=== PATIENT | male | born 1990 | race Caucasian/White ===

== ENCOUNTER 2019-09-12 12:33 | Emergency (ER) | payer SELFPAY ==
--- NOTE | 2019-09-12 12:40 | EDM.PDOC ---
ED HPI GENERAL MEDICAL PROBLEM - General Chief Complaint: Upper Extremity Injury/Pain Stated Complaint: INFECTION ON FINGER Time Seen by Provider: 09/12/19 12:34 Source of Information: Reports: Patient History Limitations: Reports: No Limitations - History of Present Illness INITIAL COMMENTS - FREE TEXT/NARRATIVE: HISTORY AND PHYSICAL: History of present illness: Patient is a 29-year-old male who presents to the emergency room with complaints of infection along the nailbed of his left index finger x3 days. He states that the area has a lot of pressure and pain below the nailbed. He denies any injury or trauma of the finger. Patient denies any fever, chills, headache, change in vision, syncope or near syncope. Denies any chest pain, back pain, shortness of breath or cough. Denies any GI or symptoms. Patient has been eating and drinking appropriately. Review of systems: As per history of present illness and below otherwise all systems reviewed and negative. Past medical history: As per history of present illness and as reviewed below otherwise noncontributory. Surgical history: As per history of present illness and as reviewed below otherwise noncontributory. Social history: See social history for further information Family history: As per history of present illness and as reviewed below otherwise noncontributory. Physical exam: General: Well-developed and well-nourished 29-year-old male. Alert and oriented. Nontoxic-appearing and in no acute distress. HEENT: Atraumatic, normocephalic, pupils equal and reactive bilaterally, negative for conjunctival pallor or scleral icterus, mucous membranes moist, TMs normal bilaterally, throat clear, neck supple, nontender, trachea midline. No drooling or trismus noted. No meningeal signs. No hot potato voice noted. Lungs: Clear to auscultation, breath sounds equal bilaterally, chest nontender. Heart: S1S2, regular rate and rhythm without overt murmur Abdomen: Soft, nondistended, nontender. Skin: Paronychia to the left index finger. Otherise skin is intact, warm, dry. No lesions or rashes noted. Extremities: Atraumatic, moves all extremities per self without difficulty or deficits. Neurovascular unremarkable. Neuro: Awake, alert, oriented. Cranial nerves II through XII unremarkable. Cerebellum unremarkable. Motor and sensory unremarkable throughout. Exam nonfocal. Notes: Usual and customary procedures were followed. Thoroughly cleansed and prepped with Betadine. Puncture site was created to express drainage. Wound care was provided. Supportive care measures were reviewed and discussed. Voices understanding and is agreeable to plan of care. Denies any further questions or concerns at this time. Diagnostics: None Therapeutics: I&D Prescription: Keflex Diclofenac Impression: Paronychia Plan: 1. Keep your skin clean and dry. Attempt to do Epsom Salt soaks of the involved finger 2-3 times daily over the next few days. 2. Take medications as needed and directed. 3. Follow up with primary care as we discussed. Return to the ED as needed as discussed Definitive disposition and diagnosis as appropriate pending reevaluation and review of above. left pointer finger Pain Score (Numeric/FACES): 10 - Related Data Allergies Allergy/AdvReac Type Severity Reaction Status Date / Time No Known Allergies Allergy Verified 09/12/19 12:45 Home Meds: Home Meds Diclofenac Sodium [Voltaren] 75 mg PO BIDMEALS PRN #20 tab.cr 09/12/19 [Rx] cephALEXin [Keflex] 500 mg PO TID 7 Days #21 cap 09/12/19 [Rx] Review of Systems - Review of Systems Review Of Systems: Comprehensive ROS is negative, except as noted in HPI. ED EXAM, GENERAL - Physical Exam Exam: See Below (See dictation) ED TRAUMA EXTREMITY PROCEDURES - I&D Site: left index finger Skin Prep: Chlorhexidine (Hibiciens), Providone-Iodine (Betadine) Area Incised With: Needle Drainage: Purulent, Moderate Amount Sterile Dressing: Adhesive Dressing Complications: No Progress/Comments: Drainage of paronychia Course - Vital Signs Last Recorded V/S: Last Vital Signs Temp 96.9 F 09/12/19 12:46 Pulse 91 09/12/19 12:46 Resp 20 09/12/19 12:46 BP 106/87 09/12/19 12:46 Pulse Ox 99 09/12/19 12:46 - Orders/Labs/Meds Meds: Medications Discontinued Medications Generic Name Dose Route Start Last Admin Trade Name Freq PRN Reason Stop Dose Admin Diclofenac Sodium 75 mg 09/12/19 12:49 Voltaren PO 09/12/19 12:50 ONETIME ONE Ketorolac Tromethamine 60 mg 09/12/19 12:49 Toradol IM 09/12/19 12:50 ONETIME ONE Departure - Departure Time of Disposition: 12:52 Disposition: Home, Self-Care 01 Clinical Impression: Paronychia of finger Qualifiers: Laterality: left Qualified Code(s): L03.012 - Cellulitis of left finger - Discharge Information Prescriptions: cephALEXin [Keflex] 500 mg PO TID 7 Days #21 cap Diclofenac Sodium [Voltaren] 75 mg PO BIDMEALS PRN #20 tab.cr PRN Reason: Pain Instructions: Paronychia, [id number] Referrals: PCP,None [Primary Care Provider] - Forms: ED Department Discharge Additional Instructions: The following information is given to patients seen in the emergency department who are being discharged to home. This information is to outline your options for follow-up care. We provide all patients seen in our emergency department with a follow-up referral. The need for follow-up, as well as the timing and circumstances, are variable depending upon the specifics of your emergency department visit. If you don't have a primary care physician on staff, we will provide you with a referral. We always advise you to contact your personal physician following an emergency department visit to inform them of the circumstance of the visit and for follow-up with them and/or the need for any referrals to a consulting specialist. The emergency department will also refer you to a specialist when appropriate. This referral assures that you have the opportunity for follow-up care with a specialist. All of these measure are taken in an effort to provide you with optimal care, which includes your follow-up. Under all circumstances we always encourage you to contact your private physician who remains a resource for coordinating your care. When calling for follow-up care, please make the office aware that this follow-up is from your recent emergency room visit. If for any reason you are refused follow-up, please contact the [facility] Emergency Department at and asked to speak to the emergency department charge nurse. [facility] [address] [place] [id number] [address] 1. Keep your skin clean and dry. Attempt to do Epsom Salt soaks of the involved finger 2-3 times daily over the next few days. 2. Take medications as needed and directed. 3. Follow up with primary care as we discussed. Return to the ED as needed as discussed Sepsis Event Note - Focused Exam Vital Signs: Vital Signs Temp Pulse Resp BP Pulse Ox 09/12/19 12:46 96.9 F 91 20 106/87 99 Date Exam was Performed: 09/12/19 Time Exam was Performed: 12:59
[2019-09-12] MEDS ORDERED: Diclofenac Sodium 75 MG Tab.EC PO ONE (12:49)
[2019-09-12] MEDS ORDERED: Ketorolac 60 MG/2 ML SDV IM ONE (12:49)
== END 2019-09-12 12:57 | disposition home or self-care (01) ==
LOC: MW.ED 12:33
DX: L03.012 Cellulitis of left finger (principal)
CPT/HCPCS: 10060; 99283-25

== ENCOUNTER 2019-11-07 21:23 | Emergency (ER) | payer SELFPAY ==
[2019-11-07] MEDS ORDERED: fentaNYL 50 MCG/ML SDV IVPUSH ONE ×2 (21:30→21:34)
[2019-11-07] MEDS ORDERED: Lactated Ringers 1,000 ML IV ONE (21:30)
[2019-11-07] MEDS ORDERED: Sodium Chloride 0.9% 10 ML Syringe FLUSH PRN (21:33)
[2019-11-07] MEDS ORDERED: Sodium Chloride 0.9% 10 ML SDV IV PRN (21:33)
[2019-11-07] MEDS ORDERED: Sodium Chloride 0.9% 2.5 ML Syringe FLUSH PRN (21:33)
--- NOTE | 2019-11-07 22:05 | CR ---
Chest: Portable supine view of the chest was obtained. Comparison: No prior chest imaging is available. Heart size and mediastinum are normal. Lungs are clear with no acute parenchymal change. Bony structures show no discrete abnormality. Impression: 1. Nothing acute is appreciated on portable supine chest x-ray. Diagnostic code #1 This report was dictated in MDT
--- NOTE | 2019-11-07 22:11 | CR ---
Right shoulder: 3 views of the right shoulder were obtained. Comparison: No previous study. Lucency is seen beneath the glenoid neck. This presumably is artifact. No discrete fracture or other bony abnormality is appreciated. Impression: 1. Nothing acute is appreciated on right shoulder study. Note: If patient has sufficient symptoms for further evaluation, CT could then be considered. Diagnostic code #2 This report was dictated in MDT
[2019-11-07 22:13] LABS: BLOOD UREA NITROGEN,BUN 17 mg/dL (7.0-18.0); CARBON DIOXIDE,CO2 30.5 mmol/L (21.0-32.0); CHLORIDE,CL 100 mmol/L (98-107); GLUCOSE RANDOM 127 mg/dL (74-106); LIPASE 64 U/L (73-393); POTASSIUM,K 4.1 mmol/L (3.5-5.1); SODIUM,NA 139 mmol/L (136-148)
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
[2019-11-07] MEDS ORDERED: Iopamidol 755 Mg/ML 100 ML Bottle IVPUSH STA (23:01)
--- NOTE | 2019-11-07 23:03 | CT ---
Head CT Technique: Multiple axial sections through the brain were obtained. Intravenous contrast was not utilized. Comparison: No prior intracranial imaging is available. Findings: Ventricles along with basal cisterns and sulci over the convexities are within normal limits for the patient's age. No abnormal parenchymal densities are seen. No evidence of intracranial hemorrhage. No midline shift or mass-effect is seen. Visualized mastoid sinuses and paranasal sinuses show nothing acute. No acute calvarial abnormality is appreciated. Impression: 1. Nothing acute is appreciated on noncontrast head CT exam. Diagnostic code #1 This report was dictated in MDT
--- NOTE | 2019-11-07 23:06 | CT ---
CT cervical spine Technique: Multiple axial sections were obtained from above C1 inferiorly through the cervical spine. Reconstructed coronal and sagittal images were obtained. Findings: Vertebral body heights and disc spaces are maintained. Vertebral bodies and posterior arches are intact. No fracture is appreciated. Mild scoliosis is seen. No bony central or bony neural foraminal stenosis is seen. No abnormal subluxation is appreciated. Impression: 1. Scoliosis. 2. Nothing acute is appreciated on CT study of the cervical spine. Diagnostic code #2 This report was dictated in MDT
--- NOTE | 2019-11-07 23:13 | CT ---
CT abdomen and pelvis Technique: Multiple axial sections were obtained from above the dome of the diaphragm inferiorly through the pubic symphysis. Intravenous contrast was utilized. No oral contrast has been given. Mild artifact is noted from the patient's arm being along the side. Findings: Liver contains no focal parenchymal abnormality. Spleen appears within normal limits. Adrenal glands show no nodule. Kidneys show symmetric contrast enhancement without hydronephrosis or mass. Pancreas is within normal limits. Gallbladder contains no calcified gallstones. Aorta shows no aneurysm. No retroperitoneal adenopathy or mesenteric abnormalities are seen. No pelvic mass or adenopathy is seen. No free fluid or inflammatory change is appreciated. Bone window settings were reviewed. No acute osseous finding is appreciated. Impression: 1. Nothing acute is appreciated on CT study of the abdomen and pelvis. Diagnostic code #1 This report was dictated in MDT
--- NOTE | 2019-11-07 23:13 | CT ---
CT chest Technique: Multiple axial sections through the chest were obtained. Intravenous contrast was utilized. Comparison: Prior chest x-ray performed earlier on the same day (9:33 PM). Aorta appears without aneurysm. Mediastinum is normal. No mediastinal hematoma is noted. No pericardial fluid is seen. Visualized upper abdominal structures show nothing acute. Lungs are clear with no acute parenchymal change. No pleural effusions are seen. No pneumothorax is identified. Bone window settings were reviewed. Fracture is identified within the posterior 7th rib. This is best noted on the reconstructed coronal and sagittal images. No additional rib fracture is appreciated.. Fracture is identified within the body and medial wing of the right scapula. Impression: 1. Right scapular fracture as noted above. 2. Fracture within the posterior right 7th rib which shows no displacement. 3. No additional abnormality is appreciated on CT study of the chest. Diagnostic code #3 This report was dictated in MDT
--- NOTE | 2019-11-07 23:26 | CT ---
CT thoracic spine Technique: Multiple axial sections through the thoracic spine were obtained. Reconstructed sagittal and coronal images were obtained. Comparison: No prior thoracic spine imaging is available. Findings: Vertebral body heights and disc spaces are maintained. Vertebral bodies and posterior arches are intact. No fracture is appreciated. No abnormal subluxation is seen. Minimal scoliosis is noted. Impression: 1. Minimal scoliosis. 2. Nothing acute is appreciated on CT study of the thoracic spine. Diagnostic code #2 This report was dictated in MDT
--- NOTE | 2019-11-07 23:36 | CT ---
CT lumbar spine Technique: Multiple axial sections through the lumbar spine were obtained. Reconstructed coronal and sagittal images were reviewed. Comparison: No prior lumbar spine imaging. Findings: Mild scoliosis is noted. Vertebral bodies and posterior arches are intact. No fracture is appreciated. No bony central or bony neural foraminal stenosis is appreciated. No traumatic disc herniation is appreciated. No abnormal subluxation is seen. Impression: 1. Mild scoliosis. 2. Nothing acute is appreciated on CT study of the lumbar spine. Diagnostic code #2 This report was dictated in MDT
== END 2019-11-08 00:15 | disposition home or self-care (01) ==
LOC: MW.ED 21:23
DX: S42.114A Nondisplaced fracture of body of scapula, right shoulder, initial encounter for closed fracture (principal); S22.31XA Fracture of one rib, right side, initial encounter for closed fracture; V86.56XA Driver of dirt bike or motor/cross bike injured in nontraffic accident, initial encounter
CPT/HCPCS: 36415; 70450; 71045; 71260; 72125; 72128; 72131; 73030; 74177; 80053; 83605; 83690; 84484; 85025; 85610; 86850; 86900; 86901; 93005; 96374; 99284; J3010; J7120; Q9967; 99283